=== PATIENT | male | born 1990 | race Caucasian/White ===

== ENCOUNTER 2021-04-05 15:47 | Inpatient (IN) ==
[2021-04-05 16:45] LABS: Urine Appearance Clear; Urine Bilirubin Negative (Negative); Urine Blood Negative (Negative); Urine Color Amber; Urine Glucose Negative (Negative); Urine Ketones Negative (Negative); Urine Nitrite Negative (Negative); Urine Protein 2+(100 mg/dL) (Negative); Urine Specific Gravity 1.035 (1.002-1.030); Urine Urobilinogen Negative (Negative)
[2021-04-05 16:47] LABS: Urine Bacteria Absent (Absent); Urine Red Blood Cell Trace(0-2/hpf) (Absent); Urine White Blood Cell Trace(0-5/hpf) (Absent)
[2021-04-05 16:56] LABS: Urine Benzodiazepine Screen None Detected (None Detect); Urine Cannabinoids Screen None Detected (None Detect); Urine Opiates Screen None Detected (None Detect)
[2021-04-05] MEDS ORDERED: Nicotine PATCH 21 MG/24 HR PATCH TRANSDERM ONE (17:19)
[2021-04-05 17:46] LABS: ABS Basophils 0.1 10^3/ul (0-0.2); ABS Eosinophils 0.5 10^3/ul (0-0.6); ABS Lymphocytes 3.1 10^3/ul (1.0-4.8); ABS Monocytes 0.8 10^3/ul (0-0.8); ABS Neutrophils 7.9 10^3/ul (1.5-7.7); Eosinophil % 3.7 %; Hematocrit 43 % (42-52); Hemoglobin 14.8 g/dL (14.0-18.0); Lymphocyte % 25.5 %; Mean Corpuscular HGB Conc 34 g/dL (31-36); Mean Corpuscular Hemoglobin 32 pg (27-31); Mean Corpuscular Volume 94 fL (80-94); Mean Platelet Volume 7.4 fL (7.4-10.4); Platelet Count 349 10^3/uL (150-450); Red Blood Count 4.56 10^6 /uL (4.18-5.48); Red Cell Distribution Width 14 % (10-15); White Blood Count 12.3 10^3/uL (3.5-10.8)
[2021-04-05 18:05] LABS: ALT 20 U/L (7-52); AST 22 U/L (13-39); Albumin/Globulin Ratio 1.5 (1-3); Alkaline Phosphatase 91 U/L (35-149); Anion Gap 9 mmol/L (2-11); Blood Urea Nitrogen 32 mg/dL (6-24); CO2 Carbon Dioxide 22 mmol/L (22-32); Calcium 10.4 mg/dL (8.6-10.3); Chloride 105 mmol/L (101-111); EGFR African American 65.6 (>60); EGFR Non-African American 54.2 (>60); Globulin 3.4 g/dL (2-4); Glucose 95 mg/dL (70-100); Potassium 4.1 mmol/L (3.5-5.0); Sodium 136 mmol/L (135-145); Total Protein 8.4 g/dL (6.4-8.9)
[2021-04-05 18:33] LABS: Acetaminophen 37 mcg/mL; Alcohol, S < 10 mg/dL (<10); Salicylate < 2.50 mg/dL (<30)
[2021-04-05 18:48] LABS: TSH Ultra Thyroid Stim Horm 0.96 mcIU/mL (0.34-5.60)
[2021-04-05] MEDS ORDERED: Nicotine GUM 4MG FRUIT FLAVOR PO ONE (21:37)
[2021-04-06] MEDS ORDERED: Nicotine PATCH 21 MG/24 HR PATCH ONE (15:52)
[2021-04-06] MEDS ORDERED: Nicotine GUM 2MG FRUIT FLAVOR PO ONE (15:53)
[2021-04-06] MEDS ORDERED: Al Hydrox/Mg Hydrox/Simet LIQ 30 ML UDC PO PRN (16:33)
[2021-04-07] MEDS: Vitamin THERAPEUTIC TAB PO SCH (10:11)
[2021-04-07] MEDS: Nicotine PATCH 21 MG/24 HR PATCH TRANSDERM SCH (10:12)
[2021-04-07] MEDS: Nicotine GUM 2MG FRUIT FLAVOR PO PRN ×2 (10:12→12:37)
[2021-04-07] MEDS: Nicotine GUM 4MG FRUIT FLAVOR PO PRN (16:46)
[2021-04-08] MEDS: Nicotine GUM 4MG FRUIT FLAVOR PO PRN ×2 (02:39→09:36)
[2021-04-08] MEDS: Vitamin THERAPEUTIC TAB PO SCH (07:47)
[2021-04-08] MEDS: Nicotine PATCH 21 MG/24 HR PATCH TRANSDERM SCH (07:47)
[2021-04-08 08:16] LABS: HDL Cholesterol 30.2 mg/dL
[2021-04-08 11:15] VITALS: BP 137/73
== END 2021-04-08 11:12 | disposition home or self-care (01) | DRG 885 ==
LOC: ED 15:47 → BSU 04-06 15:15
PROVIDERS: ADMIT Psychiatry & Neurology Psychiatry; ATTEND Psychiatry & Neurology Psychiatry